=== PATIENT | male | born 1960 | race Caucasian/White ===

== ENCOUNTER 2017-07-06 18:36 | Emergency (ER) | payer MEDICARE ==
[~2017-07-06] VITALS: Ht 185.4 cm; Wt 110.0 kg
[2017-07-06 20:22] VITALS: BP 180/103
== END 2017-07-06 20:29 | disposition home or self-care (01) ==
LOC: ED 18:36
DX: I10 Essential (primary) hypertension (principal); Z91.14 Patient's other noncompliance with medication regimen

== ENCOUNTER 2018-02-02 13:59 | Emergency (ER) | payer MEDICARE ==
[~2018-02-02] VITALS: Ht 185.4 cm; Wt 100.0 kg
[2018-02-02 14:30] LABS: HEMATOCRIT 46.9 % (39.0-50.0); HEMOGLOBIN 15.6 g/dl (14.0-18.0); IMMATURE GRANULOCYTES 1.7 % (0.0-1.0); MEAN CORPUSCULAR HGB 29.3 pG CALC (26.0-32.0); MEAN CORPUSCULAR HGB CONC 33.3 g/L CALC (32.0-36.0); NEUT# 3.88 thou/uL (1.82-7.42); RED BLOOD COUNT 5.33 mill/uL (4.70-6.10); RED CELL DISTRI WIDTH 12.2 % (11.5-15.5)
[2018-02-02] MEDS ORDERED: ALTACE10 MG PO (14:33)
[2018-02-02 14:43] LABS: ALBUMIN 4.4 g/dL (3.2-5.0); ALKALINE PHOSPHATASE 70 u/l (38-126); ANION GAP 12 (6-22 (CALC)); BILIRUBIN, TOTAL 0.7 mg/dL (0.0-1.4); BUN 23 mg/dL (9-20); BUN/CREATININE RATIO 25 (12-20 (CALC)); CARBON DIOXIDE 28 mmol/l (22-30); CHLORIDE 105 mmol/l (95-108); CREATININE 0.9 mg/dL (0.7-1.3); GFR > 60 ML/MIN (>=60 (CALC)); GFR FOR AFR.AMER. > 60 ML/MIN (>=60 (CALC)); POTASSIUM 3.9 mmol/l (3.5-5.1); SGOT/AST 22 u/l (17-59); SGPT/ALT 40 u/l (21-72); SODIUM 141 mmol/l (137-146); TOTAL PROTEIN 8.2 g/dL (6.3-8.2)
[2018-02-02 14:55] LABS: MYOGLOBIN 30 ng/mL (0 - 121)
[2018-02-02] MEDS ORDERED: BYSTOLIC10 MG PO (15:10)
[2018-02-02] MEDS ORDERED: OPANA PO (15:11)
[2018-02-02] MEDS ORDERED: SLOW-MAG PO (15:12)
[2018-02-02] MEDS ORDERED: ASPIRIN 81 LOW81 MG PO (15:12)
[2018-02-02] MEDS ORDERED: CATAPRES0.1 MG PO (15:32)
[2018-02-02 15:46] VITALS: BP 133/79
== END 2018-02-02 15:46 | disposition home or self-care (01) ==
LOC: ED 13:59
PROVIDERS: Emergency Medicine
DX: R00.2 Palpitations (principal); I10 Essential (primary) hypertension

== ENCOUNTER 2018-09-01 21:30 | Emergency (ER) | payer MEDICARE ==
[~2018-09-01] VITALS: Ht 185.4 cm; Wt 104.6 kg
[~2018-09-01 21:30] MED LIST: ALTACE10 MG PO; ASPIRIN 81 LOW81 MG PO; BYSTOLIC10 MG PO; CATAPRES0.1 MG PO; OPANA PO; SLOW-MAG PO
[2018-09-01 22:40] LABS: HEMATOCRIT 44.6 % (39.0-50.0); HEMOGLOBIN 15.4 g/dl (14.0-18.0); IMMATURE GRANULOCYTES 0.6 % (0.0-5.0); MEAN CELL VOLUME 85.3 fL CALC (80.0-100.0); MEAN CORPUSCULAR HGB 29.4 pG CALC (26.0-32.0); MEAN CORPUSCULAR HGB CONC 34.5 g/L CALC (32.0-36.0); NEUT# 5.18 thou/uL (1.82-7.42); RED BLOOD COUNT 5.23 mill/uL (4.70-6.10); RED CELL DISTRI WIDTH 12.4 % (11.5-15.5)
[2018-09-01 22:57] LABS: ALBUMIN 4.4 g/dL (3.2-5.0); ALKALINE PHOSPHATASE 53 u/l (38-126); ANION GAP 16 (6-22 (CALC)); BILIRUBIN, TOTAL 0.9 mg/dL (0.0-1.4); BUN 16 mg/dL (9-20); BUN/CREATININE RATIO 19 (12-20 (CALC)); CARBON DIOXIDE 27 mmol/l (22-30); CHLORIDE 101 mmol/l (95-108); CREATININE 0.8 mg/dL (0.7-1.3); GFR > 60 ML/MIN (>=60 (CALC)); GFR FOR AFR.AMER. > 60 ML/MIN (>=60 (CALC)); POTASSIUM 4.3 mmol/l (3.5-5.1); SGOT/AST 22 u/l (17-59); SODIUM 140 mmol/l (137-146); TOTAL PROTEIN 7.6 g/dL (6.3-8.2)
[2018-09-01] MEDS ORDERED: BYSTOLIC20 MG PO (23:08)
[2018-09-01 23:24] VITALS: BP 120/82
== END 2018-09-01 23:20 | disposition home or self-care (01) ==
LOC: ED 21:30
PROVIDERS: Family Medicine
DX: I10 Essential (primary) hypertension (principal)

== ENCOUNTER 2018-09-24 18:59 | Emergency (ER) | payer MEDICARE ==
[~2018-09-24] VITALS: Ht 185.4 cm; Wt 102.0 kg
[~2018-09-24 18:59] MED LIST changes: +BYSTOLIC20 MG PO
[2018-09-24 20:01] LABS: URINE BILIRUBIN - DIPSTICK NEGATIVE (NEGATIVE); URINE BLOOD DIPSTICK NEGATIVE (NEGATIVE); URINE COLOR YELLOW; URINE GLUCOSE - DIPSTICK NEGATIVE (NEGATIVE); URINE KETONE NEGATIVE (NEGATIVE); URINE LEUK ESTERASE NEGATIVE (Negative); URINE NITRITE - DIPSTICK NEGATIVE (Negative); URINE PROTEIN - DIPSTICK NEGATIVE (NEG-TRACE); URINE UROBILINOGEN - DIPSTICK 0.2 E.U./dL (0.2)
[2018-09-24 20:03] LABS: URINE CLARITY CLEAR
[2018-09-24 20:41] VITALS: BP 119/83
[2018-09-24] MEDS ORDERED: IBUPROFEN600 MG PO (21:06)
[2018-09-24] MEDS ORDERED: ORPHENADRINE100 MG PO (21:06)
== END 2018-09-24 21:16 | disposition home or self-care (01) ==
LOC: ED 18:59
PROVIDERS: Emergency Medicine
DX: M54.6 Pain in thoracic spine (principal); I10 Essential (primary) hypertension; Z98.1 Arthrodesis status; Z87.442 Personal history of urinary calculi